=== PATIENT | male | born 1970 | race Caucasian/White ===

== ENCOUNTER 2017-02-05 10:28 | Emergency (ER) | payer OTHER ==
[2017-02-05 11:02] VITALS: BP 130/81
--- NOTE | 2017-02-05 12:25 | UC ---
Shoulder Pain HPI - HPI Summary HPI Summary: 46 yo male with forced hyperextension of his right shoulder falling out of [address] also productive cough x 4 days now blood tinged - History of Current Complaint Chief Complaint: UCGeneralIllness Stated Complaint: RIGHT SHOULDER PAIN Time Seen by Provider: 02/05/17 12:02 Hx Obtained From: Patient Onset/Duration: Sudden Onset Timing: Constant Severity Initially: Moderate Severity Currently: Moderate Location Of Pain: Is Diffuse Pain Intensity: 4 Pain Scale Used: 0-10 Numeric Character: Dull, Aching Aggravating Factor(s): Movement, Abduction Alleviating Factor(s): Rest Related History: Dominant Hand Right - Allergies/Home Medications Allergies/Adverse Reactions: Allergies Allergy/AdvReac Type Severity Reaction Status Date / Time environmental Allergy Eyes Uncoded 02/05/17 10:50 Itchy/Swollen/Red/Watery Home Medications: Home Medications Albuterol HFA INHALER* [Ventolin HFA Inhaler*] 1 - 2 puff INH Q6H PRN 02/05/17 [ History Confirmed 02/05/17] Budesonide/Formote 160/4.5(NF) [Symbicort 160/4.5 (NF)] 2 puff INH BID 02/05/17 [History Confirmed 02/05/17] Cetirizine* [ZyrTEC 10 MG TAB*] 10 mg PO DAILY 02/05/17 [History Confirmed 02/05] PMH/Surg Hx/FS Hx/Imm Hx Previously Healthy: Yes Respiratory History Of: Reports: Asthma - Surgical History Surgical History: Yes Surgery Procedure, Year, and Place: eye surgery, right arm w/ hardware, hernia - Family History Known Family History: Positive: Hypertension - Social History Alcohol Use: Rare Substance Use Type: None Smoking Status (MU): Current Every Day Smoker Type: Cigarettes Amount Used/How Often: 1 pack a week Length of Time of Smoking/Using Tobacco: 1yr Review of Systems Constitutional: Negative Skin: Negative Eyes: Negative ENT: Negative Respiratory: Cough Cardiovascular: Negative Gastrointestinal: Negative Genitourinary: Negative Motor: Negative Neurovascular: Negative Musculoskeletal: Arthralgia Neurological: Negative Psychological: Negative All Other Systems Reviewed And Are Negative: Yes Physical Exam Triage Information Reviewed: Yes Appearance: Well-Appearing, No Pain Distress, Well-Nourished Vital Signs: Initial Vital Signs Temp 98.4 F 02/05/17 10:53 Pulse 90 02/05/17 10:53 Resp 16 02/05/17 10:53 BP 130/81 02/05/17 10:53 Pulse Ox 98 02/05/17 10:53 Vital Signs Reviewed: Yes Eyes: Positive: Conjunctiva Clear ENT: Positive: Normal ENT inspection Dental Exam: Normal Neck: Positive: Supple Respiratory: Positive: Lungs clear, Normal breath sounds, No respiratory distress Cardiovascular: Positive: RRR, No Murmur Musculoskeletal: Positive: ROM Intact, No Edema Neurological: Positive: Alert Psychological Exam: Normal Skin Exam: Normal Shoulder Course/Dx - Differential Dx/Diagnosis Provider Diagnoses: right shoulder injury, ?partial rotator cuff tear Discharge - Discharge Plan Condition: Stable Disposition: HOME Prescriptions: Amoxicillin (*) [Amoxicillin 875 MG (*)] 875 mg PO BID #20 tab Naproxen Sodium [Naproxen Sodium 500 MG TAB] 500 mg PO BID PRN #30 tab PRN Reason: Pain Patient Education Materials: Acute Bronchitis (ED), Shoulder Pain (ED) Forms: *Work Release Referrals: Arsen Tavera MD [Medical Doctor] - (get checked next week) Additional Instructions: sling as needed for comfort ice twice daily I am concerned you may have a partially torn right rotator cuff
--- NOTE | 2017-02-05 13:13 | RAD ---
INDICATION: Right shoulder injury COMPARISON: None TECHNIQUE: Routine frontal and Y views were obtained. FINDINGS: The bony structures, joint spaces, and soft tissues are normal for age. IMPRESSION: NO ACUTE BONY FINDINGS.
--- NOTE | 2017-02-05 13:43 | RAD ---
INDICATION: Blood-tinged sputum. History of asthma and environmental allergies. Multiple days productive cough. COMPARISON: None. TECHNIQUE: Dual energy PA and routine lateral views of the chest were obtained. REPORT: Clear lungs and pleural spaces. Negative for pneumothorax. The heart, pulmonary vasculature, and mediastinal contours are unremarkable. Unremarkable osseous structures and soft tissue contours. IMPRESSION: No evidence for acute intrathoracic disease.
== END 2017-02-05 13:46 | disposition home or self-care (01) ==
LOC: UCCORT 10:28
DX: S49.91XA Unspecified injury of right shoulder and upper arm, initial encounter (principal); W17.89XA Other fall from one level to another, initial encounter; Y93.9 Activity, unspecified; Y92.89 Other specified places as the place of occurrence of the external cause; R05 Cough; J45.909 Unspecified asthma, uncomplicated; F17.210 Nicotine dependence, cigarettes, uncomplicated
CPT/HCPCS: 71020; 99203; G0463

== ENCOUNTER 2018-02-03 13:16 | Emergency (ER) | payer BC, OTHER ==
[2018-02-03 13:42] VITALS: BP 133/79
--- NOTE | 2018-02-03 13:51 | UC ---
Throat Pain/Nasal Juan J HPI - HPI Summary HPI Summary: Pt presents with c/o nasal congestion, [place], sinus pressure X 10 days. - History of Current Complaint Chief Complaint: UCGeneralIllness Stated Complaint: LOSS OF VOICE,COUGH,SINUSES (HAS ASTHMA) Time Seen by Provider: 02/03/18 13:38 Hx Obtained From: Patient Onset/Duration: Gradual Onset, Lasting Days, Still Present Severity: Moderate Pain Intensity: 0 Cough: Nonproductive Associated Signs & Symptoms: Positive: Sinus Discomfort Related History: Seasonal Allergies - Epiglottits Risk Factors Epiglottis Risk Factors: Negative - Allergies/Home Medications Allergies/Adverse Reactions: Allergies Allergy/AdvReac Type Severity Reaction Status Date / Time environmental Allergy Eyes Uncoded 02/03/18 13:39 Itchy/Swollen/Red/Watery Home Medications: Home Medications Fluticasone NASAL SPRAY 50MCG* [Flonase NASAL SPRAY 50MCG*] 2 spray BOTH NARES DAILY 02/03/18 [History Confirmed 02/03/18] PMH/Surg Hx/FS Hx/Imm Hx Previously Healthy: Yes - Surgical History Surgical History: Yes Surgery Procedure, Year, and Place: LEFT eye surgery AGE 9 STITCH MUSCLE BACK TOGETHER, right arm w/ hardware, hernia - Family History Known Family History: Positive: Hypertension - Social History Occupation: Employed Full-time Lives: With Family Alcohol Use: Rare Substance Use Type: None Smoking Status (MU): Current Every Day Smoker Type: Cigarettes Amount Used/How Often: 1/2 pack a week Length of Time of Smoking/Using Tobacco: 1yr Have You Smoked in the Last Year: Yes Review of Systems Constitutional: Fatigue Skin: Negative Eyes: Negative ENT: Sinus Congestion, Sinus Pain/Tenderness Respiratory: Negative Cardiovascular: Negative Gastrointestinal: Negative Genitourinary: Negative Motor: Negative Neurovascular: Negative Musculoskeletal: Negative Neurological: Headache Psychological: Negative Is Patient Immunocompromised?: No All Other Systems Reviewed And Are Negative: Yes Physical Exam Triage Information Reviewed: Yes Appearance: Ill-Appearing Vital Signs: Initial Vital Signs Temp 99.3 F 02/03/18 13:36 Pulse 107 02/03/18 13:36 Resp 18 02/03/18 13:36 BP 133/79 02/03/18 13:36 Pulse Ox 99 02/03/18 13:36 Vital Signs Reviewed: Yes Eye Exam: Normal ENT Exam: Other ENT: Positive: Nasal congestion, Sinus tenderness Dental Exam: Normal Neck exam: Normal Respiratory Exam: Normal Respiratory: Positive: No respiratory distress Cardiovascular Exam: Normal Musculoskeletal Exam: Normal Neurological Exam: Normal Psychological Exam: Normal Skin Exam: Normal Throat Pain/Nasal Course/Dx - Differential Dx/Diagnosis Differential Diagnosis/HQI/PQRI: Sinusitis, URI Provider Diagnoses: sinusitis Discharge - Sign-Out/Discharge Documenting (check all that apply): Discharge/Admit/Transfer - Discharge Plan Condition: Stable Disposition: HOME Prescriptions: Amoxicillin PO (*) [Amoxicillin 875 MG (*)] 875 mg PO Q12H #20 tab Pseudoephedrine TAB* [Sudafed TAB*] 60 mg PO DAILY #10 tab Patient Education Materials: Sinusitis (ED) Referrals: Ollie Ruffin MD [Primary Care Provider] - If Needed - Billing Disposition and Condition Condition: STABLE Disposition: HOME
== END 2018-02-03 13:58 | disposition home or self-care (01) ==
LOC: UCCORT 13:16
DX: J32.9 Chronic sinusitis, unspecified (principal); F17.210 Nicotine dependence, cigarettes, uncomplicated
CPT/HCPCS: 99212; G0463

== ENCOUNTER 2019-05-08 08:49 | Emergency (ER) | payer BC ==
[2019-05-08 09:43] VITALS: BP 130/84
--- NOTE | 2019-05-08 10:11 | UC ---
UC General HPI - HPI Summary HPI Summary: WORSENING LOWER ABDOMINAL PAIN, BLOATING, NAUSEA AND DIARRHEA SINCE YESTERDAY. HX DIVERTICULITIS, DX 3 YEARS AGO. C/O "RUSHING AND CRAMPING" IN HIS ABDOMEN. - History of Current Complaint Chief Complaint: UCAbdominalPain Stated Complaint: ABDOMINAL PAIN Time Seen by Provider: 05/08/19 09:50 Hx Obtained From: Patient Onset/Duration: Gradual Onset Timing: Constant Pain Intensity: 9 Aggravating: MOVEMENT WORSENS PAIN Associated Signs & Symptoms: Positive: Abdominal Pain, Diarrhea, Nausea. Negative: Fever - Allergy/Home Medications Allergies/Adverse Reactions: Allergies Allergy/AdvReac Type Severity Reaction Status Date / Time environmental Allergy Eyes Uncoded 05/08/19 09:46 Itchy/Swollen/Red/Watery Home Medications: Home Medications ValACYclovir (*) [Valtrex 1 GM(*)] 1 gm PO DAILY 05/08/19 [History Confirmed ] predniSONE TAB* [Deltasone 10 MG TAB*] 10 mg PO DAILY 05/08/19 [History Confirmed 05/08/19] PMH/Surg Hx/FS Hx/Imm Hx - Additional Past Medical History Additional PMH: [place] Palsy Respiratory History: Asthma GI/ History: Diverticulitis - Surgical History Surgical History: Yes Surgery Procedure, Year, and Place: LEFT eye surgery AGE 9 STITCH MUSCLE BACK TOGETHER, right arm w/ hardware, hernia - Family History Known Family History: Positive: Hypertension - Social History Occupation: Employed Full-time Alcohol Use: Rare Substance Use Type: None Smoking Status (MU): Current Every Day Smoker Type: Cigarettes Amount Used/How Often: 4 cigarettes per day Length of Time of Smoking/Using Tobacco: 1yr Have You Smoked in the Last Year: Yes Review of Systems All Other Systems Reviewed And Are Negative: Yes Constitutional: Negative: Fever, Chills Gastrointestinal: Positive: Abdominal Pain, Diarrhea, Nausea Genitourinary: Positive: Other - no testicular pain. Negative: Dysuria Physical Exam Triage Information Reviewed: Yes Appearance: Well-Appearing Vital Signs: Initial Vital Signs Temp 97.7 F 05/08/19 09:31 Pulse 87 05/08/19 09:31 Resp 16 05/08/19 09:31 BP 130/84 05/08/19 09:31 Pulse Ox 96 05/08/19 09:31 Vital Signs Reviewed: Yes Eyes: Positive: Conjunctiva Clear, Other: - L lid droopy([place] palsy). no acute change. ENT: Positive: Pharynx normal. Negative: Nasal drainage Neck: Positive: Supple, Nontender, No Lymphadenopathy Respiratory: Positive: Lungs clear, Normal breath sounds, No respiratory distress Cardiovascular: Positive: RRR, No Murmur Abdomen Description: Positive: Other: - Mild distension. Hypoactive BS. Soft. Tender with guarding RLQ. No mass or HSM. No CVA tenderness. Male Genital Exam: Positive: Other - Defer to ER Musculoskeletal: Positive: ROM Intact Neurological: Positive: Alert Psychological: Positive: Age Appropriate Behavior Skin Exam: Normal Course/Dx - Course Course Of Treatment: REPORT CALLED TO LA JOHNSON NP AT [facility]. I ADVISED OF ABDOMINAL PAIN, BLOATING, N/D AND RLQ PAIN. CONCERN FOR APPENDICITIS VS DIVERTICULITIS. pt refused ems transfer. wants to drive self to ER. - Differential Dx - Multi-Symptom Differential Diagnoses: Other - concern for appendicitis vs diverticulitis. no concern for source. - Diagnoses Provider Diagnosis: Abdominal pain Discharge - Sign-Out/Discharge Documenting (check all that apply): Patient Departure All imaging exams completed and their final reports reviewed: No Studies - Discharge Plan Condition: Stable Disposition: TRANS HIGHER LVL OF CARE FAC Referrals: Ollie Ruffin MD [Primary Care Provider] - Additional Instructions: LEAVE HERE AND GO DIRECTLY TO THE [facility] DISCUSSED - Billing Disposition and Condition Condition: STABLE Disposition: Trans Higher Lvl of Care Fac
== END 2019-05-08 10:18 | disposition short-term general hospital (02) ==
LOC: UCCORT 08:49
DX: R10.31 Right lower quadrant pain (principal); F17.210 Nicotine dependence, cigarettes, uncomplicated
CPT/HCPCS: 99212; G0463